=== PATIENT | female | born 1985 | race Two or more races ===

== ENCOUNTER 2022-07-12 16:21 | Emergency (ER) | payer OTHER ==
[2022-07-12] MEDS ORDERED: ACETAMINOPHEN 325 MG TABLET (FP) PO ONE (16:25)
[2022-07-12] MEDS ORDERED: DIPHTH,PERTUSS(ACELL),TET 0.5 ML DISP.SYRIN IM ONE ×2 (16:31→16:43)
[2022-07-12 17:12] VITALS: BP 144/78; PULSE 73; RESP 15; TEMP 98; BMI 22.6
== END 2022-07-12 17:44 | disposition home or self-care (01) ==
LOC: FER 16:21
PROC: 3E0234Z Introduction of Serum, Toxoid and Vaccine into Muscle, Percutaneous Approach (ICD-10-PCS; principal; 2022-07-12)
DX: S00.03XA Contusion of scalp, initial encounter (principal); R51.9 Headache, unspecified; W20.8XXA Other cause of strike by thrown, projected or falling object, initial encounter; Y92.512 Supermarket, store or market as the place of occurrence of the external cause
CPT/HCPCS: 70450-TC; 81025; 90715; 99284-25